=== PATIENT | female | born 1935 | race Caucasian/White ===

== ENCOUNTER 2016-10-13 11:50 | Inpatient (IN) | payer MEDICARE ==
[~2016-10-13] VITALS: Ht 165.1 cm; Wt 52.3 kg
[2016-10-13 12:34] VITALS: BP 189/68
[2016-10-13 13:19] LABS: BASO # 0.1 10*3/uL (0.0-0.1); BASO % 1.1 % (0.0-1.0); EOS # 0.1 10*3/uL (0.0-0.4); EOS % 1.1 % (1.0-4.0); HEMATOCRIT 30.9 % (37.0-47.0); HEMOGLOBIN 10.3 g/dl (12.0-16.0); LYMPH # 1.7 10*3/uL (1.3-4.4); LYMPH % 37.7 % (27.0-41.0); MEAN CELL VOLUME 94.2 fl (81.0-99.0); MEAN CORPUSCULAR HGB 31.4 pg (27.0-31.0); MEAN CORPUSCULAR HGB CONC 33.3 g/dl (33.0-37.0); MEAN PLATELET VOLUME 10.2 fl (9.6-12.3); MONO # 0.4 10*3/uL (0.1-1.0); MONO % 9.4 % (3.0-9.0); NEUT # 2.2 10*3/uL (2.3-7.9); NEUT % 50.5 % (47.0-73.0); PLATELET COUNT AUTOMATED 154 10*3/uL (130-400); RED BLOOD COUNT 3.28 10*6/uL (4.10-5.10); RED CELL DISTRI WIDTH 12.2 % (0-14.5); WHITE BLOOD COUNT 4.4 10*3/uL (4.8-10.8)
[2016-10-13 13:34] LABS: ALBUMIN 2.9 gm/dl (3.1-4.5); ALKALINE PHOSPHATASE 80 U/L (45-117); BILIRUBIN, TOTAL 0.5 mg/dl (0.2-1.0); BUN 16 mg/dl (7-24); CARBON DIOXIDE 29 mmol/L (21-32); CHLORIDE 103 mmol/L (98-107); EST GLOM FILT AFRICAN AMERICAN > 60 ml/min; GLUCOSE 108 mg/dL (65-99); POTASSIUM 4.5 mmol/L (3.5-5.1); SGOT/AST 7 IU/L (3-35); SGPT/ALT 12 U/L (12-78); SODIUM 140 mmol/L (136-145); TOTAL PROTEIN 7.3 gm/dL (6.4-8.2)
[2016-10-13 14:39] VITALS: BP 204/82
[2016-10-13 14:49] LABS: BILIRUBIN NEGATIVE (NEGATIVE); BLOOD 1+ (NEGATIVE); CLARITY SL CLOUDY (CLEAR); COLOR YELLOW (YELLOW); GLUCOSE NEGATIVE (NEGATIVE); KETONE NEGATIVE (NEGATIVE); LEUKO ESTERASE 2+ (NEGATIVE); NITRITE NEGATIVE (NEGATIVE); PROTEIN NEGATIVE (NEGATIVE)
[2016-10-13 15:04] LABS: BACTERIA 2+; MUCOUS TRACE; URINE REFLEX COMMENT YES (NO); WBC 21-30 wbc/hpf (0-5)
[2016-10-13 18:35] VITALS: BP 176/50
[2016-10-13 20:00] VITALS: BP 144/44
[2016-10-14] VITALS: BP 158/57
[2016-10-14 06:45] LABS: BASO % 0.7 % (0.0-1.0); EOS # 0.1 10*3/uL (0.0-0.4); EOS % 1.9 % (1.0-4.0); HEMATOCRIT 27.1 % (37.0-47.0); HEMOGLOBIN 8.9 g/dl (12.0-16.0); LYMPH # 2.3 10*3/uL (1.3-4.4); LYMPH % 40.4 % (27.0-41.0); MEAN CELL VOLUME 93.4 fl (81.0-99.0); MEAN CORPUSCULAR HGB 30.7 pg (27.0-31.0); MEAN CORPUSCULAR HGB CONC 32.8 g/dl (33.0-37.0); MEAN PLATELET VOLUME 10.6 fl (9.6-12.3); MONO # 0.5 10*3/uL (0.1-1.0); MONO % 9.5 % (3.0-9.0); NEUT # 2.7 10*3/uL (2.3-7.9); NEUT % 47.1 % (47.0-73.0); PLATELET COUNT AUTOMATED 147 10*3/uL (130-400); RED CELL DISTRI WIDTH 12.2 % (0-14.5); WHITE BLOOD COUNT 5.7 10*3/uL (4.8-10.8)
[2016-10-14 07:22] LABS: INTERNATIONAL NORM RATIO 1.1 (2.0-3.5); PROTHROMBIN TIME 11.5 SECONDS (9.0-12.4)
[2016-10-14 07:27] LABS: CHLORIDE 104 mmol/L (98-107); POTASSIUM 4.2 mmol/L (3.5-5.1); SODIUM 137 mmol/L (136-145)
[2016-10-14 07:40] LABS: ALBUMIN 2.6 gm/dl (3.1-4.5); ALKALINE PHOSPHATASE 73 U/L (45-117); BILIRUBIN, TOTAL 0.5 mg/dl (0.2-1.0); BUN 17 mg/dl (7-24); CARBON DIOXIDE 26 mmol/L (21-32); CHOLESTEROL 86 mg/dL (<200); EST GLOM FILT AFRICAN AMERICAN > 60 ml/min; GLUCOSE 95 mg/dL (65-99); HDL CHOLESTEROL 46 mg/dl (40-60); LDL CHOLESTEROL 32 mg/dL (9-159); MAGNESIUM 2.1 mg/dL (1.5-2.1); PHOSPHOROUS 3.1 mg/dL (2.5-4.9); SGOT/AST 8 IU/L (3-35); SGPT/ALT 7 U/L (12-78); TOTAL PROTEIN 6.5 gm/dL (6.4-8.2); TRIGLYCERIDES 38 mg/dl (<150); VLDL CHOLESTEROL 8 mg/dL (6-40)
[2016-10-14 08:00] VITALS: BP 160/50
[2016-10-14 12:00] VITALS: BP 149/69
[2016-10-14 16:00] VITALS: BP 147/86
[2016-10-14 20:00] VITALS: BP 177/55
[2016-10-15 01:30] VITALS: BP 173/55
[2016-10-15 06:13] LABS: BASO % 0.6 % (0.0-1.0); EOS # 0.1 10*3/uL (0.0-0.4); EOS % 2.6 % (1.0-4.0); HEMOGLOBIN 8.9 g/dl (12.0-16.0); LYMPH # 2.5 10*3/uL (1.3-4.4); MEAN CELL VOLUME 95.6 fl (81.0-99.0); MEAN CORPUSCULAR HGB 30.4 pg (27.0-31.0); MEAN CORPUSCULAR HGB CONC 31.8 g/dl (33.0-37.0); MEAN PLATELET VOLUME 10.1 fl (9.6-12.3); MONO # 0.5 10*3/uL (0.1-1.0); MONO % 10.2 % (3.0-9.0); NEUT # 1.9 10*3/uL (2.3-7.9); NEUT % 37.4 % (47.0-73.0); PLATELET COUNT AUTOMATED 135 10*3/uL (130-400); RED BLOOD COUNT 2.93 10*6/uL (4.10-5.10); RED CELL DISTRI WIDTH 12.2 % (0-14.5)
[2016-10-15 06:45] LABS: BUN 18 mg/dl (7-24); CARBON DIOXIDE 26 mmol/L (21-32); CHLORIDE 106 mmol/L (98-107); GLUCOSE 101 mg/dL (65-99); POTASSIUM 4.2 mmol/L (3.5-5.1); SODIUM 141 mmol/L (136-145)
[2016-10-15 06:46] LABS: EST GLOM FILT AFRICAN AMERICAN > 60 ml/min
[2016-10-15 08:00] VITALS: BP 170/50
[2016-10-15 12:00] VITALS: BP 151/48
[2016-10-15 16:00] VITALS: BP 122/58
[2016-10-15 20:00] VITALS: BP 104/51
[2016-10-16] VITALS: BP 141/48
[2016-10-16 08:00] VITALS: BP 159/41
[2016-10-16] MEDS ORDERED: LISINOPRIL5 MG PO (11:41)
[2016-10-16] MEDS ORDERED: LEVAQUIN750 M1 PO (11:41)
[2016-10-16 12:00] VITALS: BP 132/30
== END 2016-10-16 13:45 | disposition other institution (70) | DRG 177 ==
LOC: ED 11:50 → 5E 17:48 → EDHOLD 17:48 → 5E 10-16 13:45
PROVIDERS: Emergency Medicine; Internal Medicine
DX: J15.6 Pneumonia due to other Gram-negative bacteria (principal); E43 Unspecified severe protein-calorie malnutrition; S72.102A Unspecified trochanteric fracture of left femur, initial encounter for closed fracture; N39.0 Urinary tract infection, site not specified; D64.9 Anemia, unspecified; S79.912A Unspecified injury of left hip, initial encounter; Z68.1 Body mass index [BMI] 19.9 or less, adult; W18.39XA Other fall on same level, initial encounter; D72.819 Decreased white blood cell count, unspecified; I16.0 Hypertensive urgency; Z71.6 Tobacco abuse counseling; Z88.6 Allergy status to analgesic agent; Y93.89 Activity, other specified; Y92.89 Other specified places as the place of occurrence of the external cause; Y99.8 Other external cause status

== ENCOUNTER 2016-11-27 22:52 | Emergency (ER) | payer MEDICARE ==
[~2016-11-27] VITALS: Ht 165.1 cm; Wt 59.0 kg
[~2016-11-27 22:52] MED LIST: LEVAQUIN750 M1 PO; LISINOPRIL5 MG PO
[2016-11-27 23:16] LABS: BASO # 0.1 10*3/uL (0.0-0.1); BASO % 0.4 % (0.0-1.0); EOS # 0.1 10*3/uL (0.0-0.4); EOS % 0.4 % (1.0-4.0); HEMATOCRIT 28.8 % (37.0-47.0); HEMOGLOBIN 9.5 g/dl (12.0-16.0); IG # 0.1 10*3/uL (0.0-0.1); LYMPH # 2.9 10*3/uL (1.3-4.4); LYMPH % 20.7 % (27.0-41.0); MEAN CELL VOLUME 92.6 fl (81.0-99.0); MEAN CORPUSCULAR HGB 30.5 pg (27.0-31.0); MEAN PLATELET VOLUME 9.9 fl (9.6-12.3); NEUT % 70.9 % (47.0-73.0); PLATELET COUNT AUTOMATED 208 10*3/uL (130-400); RED BLOOD COUNT 3.11 10*6/uL (4.10-5.10); RED CELL DISTRI WIDTH 12.2 % (0-14.5); WHITE BLOOD COUNT 14.1 10*3/uL (4.8-10.8)
[2016-11-27 23:33] LABS: ALBUMIN 3.2 gm/dl (3.1-4.5); ALKALINE PHOSPHATASE 72 U/L (45-117); BILIRUBIN, TOTAL 0.4 mg/dl (0.2-1.0); BUN 31 mg/dl (7-24); CARBON DIOXIDE 23 mmol/L (21-32); CHLORIDE 95 mmol/L (98-107); EST GLOM FILT AFRICAN AMERICAN > 60 ml/min; GLUCOSE 133 mg/dL (65-99); POTASSIUM 4.2 mmol/L (3.5-5.1); SGOT/AST 14 IU/L (3-35); SODIUM 131 mmol/L (136-145); TOTAL PROTEIN 8.2 gm/dL (6.4-8.2)
[2016-11-27 23:38] LABS: SGPT/ALT 19 U/L (12-78)
== END 2016-11-28 01:03 | disposition home or self-care (01) ==
LOC: ED 22:52
PROVIDERS: Nurse Practitioner Family
DX: R11.0 Nausea (principal); I10 Essential (primary) hypertension; F17.210 Nicotine dependence, cigarettes, uncomplicated; Z88.0 Allergy status to penicillin; Z79.899 Other long term (current) drug therapy

== ENCOUNTER 2017-06-16 13:18 | Inpatient (IN) | payer MEDICARE ==
[~2017-06-16] VITALS: Ht 170.1 cm; Wt 47.3 kg
--- NOTE | ~2017-06-16 | WRIGHTHP ---
[place], [place] PATIENT HISTORY AND PHYSICAL EXAM NAME: RICK ARRINGTON [facility] #: [id number] UNIT #: [id number] ROOM: 420 DOCTOR: TREVOR MELRAA MD BIRTHDATE: [birth year] DOS: 06/16/2017 HISTORY OF PRESENT ILLNESS: The patient is an 81-year-old female. The patient with past medical history of: 1. Adult failure to thrive. 2. History of closed fracture of the lesser trochanter of the left femur. 3. History of nicotine smoke dependence 4. Mild protein-calorie malnutrition. 5. Hypertension. 6. Normocytic anemia. The patient presented to the Emergency Department after she had dental extractions, following which she was doing well until she took CODEINE for pain prescribed by her dentist and within one hour she became very confused, had nausea, vomiting and a syncopal episode. She was alert, but drowsy in the Emergency Department. After admission, her condition has improved. There are no complaints of any chest pain. No shortness of breath. No GI or urinary symptoms. REVIEW OF SYSTEMS: LUNGS: Without shortness of breath or wheezing. GASTROINTESTINAL: No nausea, vomiting, diarrhea or constipation anymore. Earlier she had vomiting. CARDIOVASCULAR: No chest pains or palpitations. SOCIAL HISTORY: Nicotine smoke dependent. Denies any alcohol or drug abuse. FAMILY HISTORY: Noncontributory. MEDICATIONS: The patient takes only lisinopril at home. ALLERGIES: Known allergies to ASPIRIN. PHYSICAL EXAMINATION: GENERAL: Alert, oriented x 3. HEENT AND NECK: Extraocular movements are intact. Sclerae are anicteric. Oral mucosa is moist and clean. No obvious facial weakness. Neck is supple without any lymphadenopathy. No thyromegaly. No JVD. No carotid arterial bruits. Slight swelling of the right side of the face where she had a recent dental procedure. LUNGS: Clear to auscultation. No wheezing. No rhonchi. CARDIOVASCULAR SYSTEM: Heart rate is regular in rate and rhythm. S1 and S2 normally audible. No significant murmur or any other abnormal cardiac sounds. ABDOMEN: Soft, nontender. No obvious organomegaly. Bowel sounds are present. No obvious herniation. EXTREMITIES: Without significant cyanosis or edema. Warm to touch. CENTRAL NERVOUS SYSTEM: Alert and oriented x 3. Cranial nerves II-XII are intact. Speech is normal. The patient is able to move all extremities. Normal muscle strength. Deep tendon reflexes are equal on both sides. Plantars were downgoing. [place], [place] PATIENT HISTORY AND PHYSICAL EXAM [id number] #: [id number] ROOM: [facility] DOCTOR: SARITHA CASTILLO,TREVOR Moise BIRTHDATE: [birth year] CENTRAL NERVOUS SYSTEM: Generalized weakness. LABORATORY DATA: Urine cultures are normal. Hemoglobin 9.7. No leukocytosis. Platelets low at 113 1000. Normal serum electrolytes. IMPRESSION AND PLAN: 1. Adverse reaction to CODEINE used after dental extraction for pain relief followed by mental confusion and vomiting, which have resolved. The patient is feeling much better. She is alert and oriented. I am putting in a discharge for the patient to be able to leave the hospital in the morning because she does not want to leave at this time and she lives by herself. 2. Benign essential hypertension, with controlled blood pressures. 3. Old age and adult failure to thrive. The patient is followed closely by her family at home. 4. Anemia of chronic disease. Hemoglobin stable at 9.7. TREVOR MELARA MD CM:HISPHYS:PATIENT HISTORY AND PHYSICAL EXAMINATION 55 54 TREVOR MELARA MD 06/17/[id number] interface
[2017-06-16 13:18] VITALS: BP 134/54
[2017-06-16 13:56] LABS: BASO % 0.3 % (0.0-1.0); EOS % 0.1 % (1.0-4.0); HEMOGLOBIN 10.7 g/dl (12.0-16.0); LYMPH # 1.7 10*3/uL (1.3-4.4); LYMPH % 14.6 % (27.0-41.0); MEAN CELL VOLUME 97.6 fl (81.0-99.0); MEAN CORPUSCULAR HGB 31.7 pg (27.0-31.0); MEAN CORPUSCULAR HGB CONC 32.4 g/dl (33.0-37.0); MONO # 0.9 10*3/uL (0.1-1.0); MONO % 7.3 % (3.0-9.0); NEUT % 76.8 % (47.0-73.0); PLATELET COUNT AUTOMATED 133 10*3/uL (130-400); RED BLOOD COUNT 3.38 10*6/uL (4.10-5.10); RED CELL DISTRI WIDTH 12.1 % (0-14.5); WHITE BLOOD COUNT 11.7 10*3/uL (4.8-10.8)
[2017-06-16 14:08] LABS: ALBUMIN 3.1 gm/dl (3.1-4.5); ALKALINE PHOSPHATASE 85 U/L (45-117); BUN 23 mg/dl (7-24); CHLORIDE 99 mmol/L (98-107); CREATININE 0.89 mg/dL (0.55-1.02); LIPASE 72 U/L (73-393); POTASSIUM 3.9 mmol/L (3.5-5.1); SGOT/AST 10 IU/L (3-35); SGPT/ALT 16 U/L (12-78); SODIUM 134 mmol/L (136-145)
[2017-06-16 14:09] LABS: TROPONIN I 0.017 ng/ml (<0.045)
[2017-06-16 15:13] LABS: BILIRUBIN 1+ (NEGATIVE); BLOOD 2+ (NEGATIVE); CLARITY SL CLOUDY (CLEAR); COLOR YELLOW (YELLOW); GLUCOSE NEGATIVE (NEGATIVE); KETONE TRACE (NEGATIVE); LEUKO ESTERASE NEGATIVE (NEGATIVE); NITRITE NEGATIVE (NEGATIVE); SPECIFIC GRAVITY >= 1.030 (1.005-1.030)
[2017-06-16 15:21] LABS: BACTERIA 1+
[2017-06-16 15:22] LABS: RBC 21-30 rbc/hpf (0-2)
--- NOTE | 2017-06-16 16:41 | NUR ---
PT WAS SET FOR DISCHARGE, PT IS STILL DROWSY, PT HAD NAUSEA WHEN ATTEMPT TO MOVE HER UP FROM THE BED. PT IS WEAK AND LETHARGIC. PT STATES " I CAN'T GO HOME I WANT TO STAY". THIS WAS DISCUSS WITH DR HORVATH, PT IS TO BE ADMITTED. DAUGHTER IS AGREEABLE.
[2017-06-16 16:46] VITALS: BP 126/66
[2017-06-16 18:35] VITALS: BP 172/48
--- NOTE | 2017-06-16 18:35 | NUR ---
A 81, admitted to , under the services of Dr. SARITHA CASTILLO,TREVOR Moise with a diagnosis of AC ENCEPHALOPATHY, SYNCHOPE. Chief complaint is SYNCHOPE, NAUSEA/VOMITING. Patient arrived via stretcher from ER. Monitor applied. Initial assessment completed. Vital signs taken and recorded. DR. SARITHA CASTILLO,TREVOR Moise notified of admission to the unit. Orders received. See assessment for past medical history, medications and allergies. Patient and/or family oriented to unit. [facility] visitation policy reviewed. Clothing/patient valuable form completed. MARTINEZ CALLES
[2017-06-16 18:46] VITALS: BP 172/48
[2017-06-16 20:00] VITALS: BP 168/53
--- NOTE | 2017-06-16 20:07 | NUR ---
IN TO ASSESS PATIENT, PATIENT IS NEAURO CHECKS EVERY HOUR. STATES SHE IS TIRED. PATIENT DROWSY. ABLE TO MOVE ALL EXTREMITIES, BUT APPEARS WEAK. ABLE TO FOLLOW WITH EYES, ALERT AND ORIENTED TO PERSON AND PLACE, BUT DISORIENTED TO TIME. PATIENT AWAKENS WHEN SPOKEN WITH.
[2017-06-16 22:00] VITALS: BP 148/52
[2017-06-17] VITALS: BP 148/52
[2017-06-17 06:25] LABS: BUN 22 mg/dl (7-24); CHLORIDE 106 mmol/L (98-107); CREATININE 0.66 mg/dL (0.55-1.02); SODIUM 138 mmol/L (136-145)
[2017-06-17 06:34] LABS: BASO % 0.4 % (0.0-1.0); EOS % 0.2 % (1.0-4.0); HEMATOCRIT 30.2 % (37.0-47.0); HEMOGLOBIN 9.7 g/dl (12.0-16.0); LYMPH # 2.7 10*3/uL (1.3-4.4); LYMPH % 29.1 % (27.0-41.0); MEAN CELL VOLUME 99.3 fl (81.0-99.0); MEAN CORPUSCULAR HGB 31.9 pg (27.0-31.0); MEAN CORPUSCULAR HGB CONC 32.1 g/dl (33.0-37.0); MEAN PLATELET VOLUME 12.5 fl (9.6-12.3); MONO # 0.8 10*3/uL (0.1-1.0); MONO % 8.3 % (3.0-9.0); NEUT # 5.6 10*3/uL (2.3-7.9); NEUT % 61.6 % (47.0-73.0); PLATELET COUNT AUTOMATED 113 10*3/uL (130-400); RED BLOOD COUNT 3.04 10*6/uL (4.10-5.10); RED CELL DISTRI WIDTH 12.2 % (0-14.5); WHITE BLOOD COUNT 9.1 10*3/uL (4.8-10.8)
[2017-06-17 08:00] VITALS: BP 154/50
--- NOTE | 2017-06-17 08:00 | NUR ---
SW WILL TALK TO PT AND FAMILY ABOUT DC PLAN.
--- NOTE | 2017-06-17 11:10 | NUR ---
SW BRIEFLY SPOKE WITH PT REGARDING DISCHARGE PLANS. PT WANTS SW TO SPEAK WITH DTQue ZAVALA. SW LEFT VM FOR DTQue ZAVALA TO CALL SW TO DISCUSS DISCHARGE PLANS. RETURN NUMBER GIVEN.
[2017-06-17 12:00] VITALS: BP 152/54
--- NOTE | 2017-06-17 12:14 | NUR ---
BRENDA SPOKE WITH DTR LUCAS. PT HAD 5 TEETH PULLED ON WEDNESDAY AT 2PM. PT TOOK MEDICATION FOR TEETH PAIN AND HAD A REACTION TO IT. PT HAS HOME HEALTH AIDE DAILY WITH [facility]. LUCAS'S [id number] IS [address], [place]. PHONE: .
[2017-06-17 16:00] VITALS: BP 156/60
[2017-06-17 20:00] VITALS: BP 137/80
--- NOTE | 2017-06-17 20:00 | NUR ---
RESTING IN BED. SKIN PALE, WARM & DRY. SWELLING NOTED TO RIGHT SIDE OF FACE. PT. DENIES PAIN/DISCOMFORT. IV FLUIDS INFUSING INTO RIGHT ANTECUBITAL WITHOUT DIFFICULTY; SITE ASYMPTOMATIC. ORIENTED TO PLACE BUT NOT TO TIME. NO DISTRESS NOTED. CALL LIGHT WITHIN REACH.
[2017-06-18] VITALS: BP 161/50
--- NOTE | 2017-06-18 04:00 | NUR ---
RESTING IN BED WITH EYES CLOSED. CALL LIGHT WITHIN REACH. BED IN LOW POSITION.
[2017-06-18 08:00] VITALS: BP 160/50
--- NOTE | 2017-06-18 11:19 | NUR ---
Discharge instructions reviewed with patient/family. Patient receptive and verbalizes understanding. Follow-up care arranged. Written instructions given to patient/family. ROBBY BECKER
== END 2017-06-18 11:19 | disposition home health service (06) | DRG 71 ==
LOC: ED 13:18 → EDHOLD 17:29 → 4E 17:29
PROVIDERS: Internal Medicine; ADMIT Internal Medicine
DX: G93.40 Encephalopathy, unspecified (principal); E44.0 Moderate protein-calorie malnutrition; D63.8 Anemia in other chronic diseases classified elsewhere; R54 Age-related physical debility; I10 Essential (primary) hypertension; T40.2X5A Adverse effect of other opioids, initial encounter; F17.200 Nicotine dependence, unspecified, uncomplicated; R62.7 Adult failure to thrive; Z79.899 Other long term (current) drug therapy; Y92.89 Other specified places as the place of occurrence of the external cause; Z88.6 Allergy status to analgesic agent; Z87.440 Personal history of urinary (tract) infections

== ENCOUNTER 2019-06-20 17:15 | Inpatient (IN) | payer MEDICARE ==
[~2019-06-20] VITALS: Ht 165.1 cm; Wt 48.7 kg
[2019-06-20 17:15] VITALS: BP 157/59
[~2019-06-20 17:15] MED LIST changes: +CEFUROXIME AXE250 MG PO; +PREDNISONE5 MG PO
[2019-06-20 17:37] LABS: BILIRUBIN NEGATIVE (NEGATIVE); BLOOD TRACE-INTACT (NEGATIVE); CLARITY CLOUDY (CLEAR); COLOR YELLOW (YELLOW); GLUCOSE NEGATIVE (NEGATIVE); KETONE NEGATIVE (NEGATIVE); LEUKO ESTERASE 1+ (NEGATIVE); NITRITE POSITIVE (NEGATIVE)
[2019-06-20 17:46] LABS: BACTERIA 4+; EPITHELIAL CELLS 0-2; MUCOUS TRACE; RBC 0-2 rbc/hpf (0-2); WBC 41-50 wbc/hpf (0-5)
[2019-06-20 18:26] LABS: BASO % 0.3 % (0.0-1.0); HEMATOCRIT 36.9 % (37.0-47.0); HEMOGLOBIN 11.6 g/dl (12.0-16.0); LYMPH # 0.9 10*3/uL (1.3-4.4); LYMPH % 10.8 % (27.0-41.0); MEAN CELL VOLUME 100.8 fl (81.0-99.0); MEAN CORPUSCULAR HGB 31.7 pg (27.0-31.0); MEAN CORPUSCULAR HGB CONC 31.4 g/dl (33.0-37.0); MEAN PLATELET VOLUME 12.9 fl (9.6-12.3); MONO # 0.3 10*3/uL (0.1-1.0); MONO % 3.8 % (3.0-9.0); NEUT # 6.7 10*3/uL (2.3-7.9); NEUT % 84.7 % (47.0-73.0); PLATELET COUNT AUTOMATED 81 10*3/uL (130-400); RED BLOOD COUNT 3.66 10*6/uL (4.10-5.10); RED CELL DISTRI WIDTH 12.5 % (0-14.5); WHITE BLOOD COUNT 7.9 10*3/uL (4.8-10.8)
[2019-06-20 18:42] VITALS: BP 161/47
[2019-06-20 18:43] LABS: ACT PARTIAL THROMBO TIME 23.1 SECONDS (20.0-32.1)
[2019-06-20 18:51] LABS: ALBUMIN 3.3 gm/dl (3.1-4.5); CREATININE 1.06 mg/dL (0.55-1.02); POTASSIUM 4.5 mmol/L (3.5-5.1); TOTAL PROTEIN 7.7 gm/dL (6.4-8.2); TROPONIN I 0.016 ng/ml (<0.045)
[2019-06-20 20:04] VITALS: BP 127/73
--- NOTE | 2019-06-20 20:04 | NUR ---
A 83, admitted to , under the services of CARLOS Ramirez MD with a diagnosis of FALLS, WEAKNESS. Chief complaint is WEAKNESS. Patient arrived via stretcher from ER. Monitor applied. Initial assessment completed. Vital signs taken and recorded. CARLOS RAMIREZ MD notified of admission to the unit. Orders received. See assessment for past medical history, medications and allergies. Patient and/or family oriented to unit. [facility] visitation policy reviewed. Clothing/patient valuable form completed. NEDRA KEYES
--- NOTE | 2019-06-20 21:30 | NUR ---
CALL PLACED TO DR. TORRES ADMISSION ORDERS RECEIVED, WILL SEE PATIENT TOMORROW AM.
[2019-06-21] VITALS: BP 146/42
--- NOTE | 2019-06-21 05:33 | NUR ---
PATIENT RESTED QUIETLY ALL NIGHT, UPON AWAKING THIS MORNING SHE WAS COMPLAINING TO THE PA THAT HER ARMS HURT, WHEN I ASKED HER ABOUT PAIN SHE STATED SHE WASNT HAVING ANY.
--- NOTE | 2019-06-21 08:03 | NUR ---
PHYSICAL THERAPY Screen received as well as Physical Therapy orders will follow thank you Perlita Stewart PT
--- NOTE | 2019-06-21 09:00 | NUR ---
Chrome Tanner in to talk to patient. Patient states lives at home alone with her family checking in on her. There are 0 steps in the home. Physician: Dr. Mike Taylor Pharmacy: she in unsure, her son picks up her medication Home health services: [facility] Patient's level of ADLs: MINIMAL ASSIST Patient has working utilities: yes DME: walker Follow-up physician's appointment after d/c: she prefers to make her own follow up appt after discharge Does patient want to access PORTAL?: no Discharge plan discussed with patient. She lives at home alone with her family checking in on her. She states she has 2 daughters, Franchesca and Verna, and one son. She needs minimal assistance with her ADLs and ambulates with a walker. Discussed short term rehab and she refuses. Discussed home health care services and she is agreeable. She states she has Yumi from [facility] but is unsure of how often she comes. When provided with a list of agencies she chose [facility]. When medically stable she will be discharged to home. Her son will provide transportation on discharge. LAURA SOLER
[2019-06-21 09:14] VITALS: BP 120/60
--- NOTE | 2019-06-21 09:29 | NUR ---
Spoke to daughter, Verna, at [phone], regarding discharge planning. She states her mother does live at home alone. She has a life alert that she keeps on her walker but when she fell she couldn't reach her walker. Patient does have [facility] but she is unsure of amount of time. [facility] provides aides to help her bathe and meal preparation. Daughter doesn't know which pharmacy her mom uses as her brother picks up her medications and works in [employer]. Discussed short term rehab and she refuses stating her mom has gone before and wasn't happy with it. Discussed home health care services and daughter is agreeable as mother has had home health care services in the past. Discussed therapy can come to the home to see the patient but it would be possibly 20-40 minutes at a time a couple days a week. Daughter states that will be fine. personal financial planner notified.
--- NOTE | 2019-06-21 10:25 | NUR ---
ARRIVED ON SHIFT, INTRODUCED TO PATIENT, NO NEEDS VOICED AT THIS TIME, WHITE BOARD UPDATED.
--- NOTE | 2019-06-21 11:40 | NUR ---
PT REFUSED MRI. DR TORRES MADE AWARE.
--- NOTE | 2019-06-21 11:49 | NUR ---
Nursing screen received and chart reviewed. Patient was found at home following a fall, lives alone. If patient has a decline in ADLs and functional mobility/transfers, please send OT referral. Thank you. Imelda Riojas, OTR/L
--- NOTE | 2019-06-21 11:56 | NUR ---
Per Paula at [facility] patient has aides 2 hours in the AM and 2 hours in the PM 7 days a week.
[2019-06-21 13:14] VITALS: BP 126/58
--- NOTE | 2019-06-21 13:51 | NUR ---
Occupational therapy orders received and chart reviewed. Patient was in bed with HOB elevated eating her lunch upon arrival. Patient refusing OT evaluation at this time. Will follow up with patient. Thank you. Imelda Riojas, OTR/L
--- NOTE | 2019-06-21 14:20 | NUR ---
Occupational therapy orders received and evaluation completed in full on floor four. Patient precautions include fall risk, standard walker use, bed alarm, JACKSON, L foot pain, and generalized weakness. Per OT eval, patient would benefit from a SNF. If refused, home with HH SN, OT, and PT with 24/ supervision. Patient would benefit from continued OT to maximize safety and independence with ADLs and functional mobility/transfers. Patient complexity is mod, 30025. Thank you for the referral. Imelda Riojas, OTR/L
--- NOTE | 2019-06-21 15:26 | NUR ---
PHYSICAL THERAPY Jh completed moderate level of complexity 03527 recomend SNF at discharge PT to work on transfer,amb, strengthening, balance and safety, thank you Perlita Stewart PT
[2019-06-21 16:59] VITALS: BP 141/40
--- NOTE | 2019-06-21 19:30 | NUR ---
ARRIVED ON SHIFT, INTRODUCED TO PATIENT, NO NEEEDS VOICED AT THIS TIME, WHITE BOARD UPDATED.
[2019-06-21 20:00] VITALS: BP 153/39
[2019-06-21 20:30] VITALS: BP 100/60
--- NOTE | 2019-06-21 21:00 | NUR ---
24 HR chart check completed.
[2019-06-22] VITALS: BP 157/61
[2019-06-22 08:00] VITALS: BP 142/57
--- NOTE | 2019-06-22 08:13 | NUR ---
Collection Administrator in to see patient with Dr. Garza. Patient left foot x-ray showing minimally displaced fractures of the distal shafts of third and fourth metatarsals. Subtle nonspecific changes of the distal fifth metatarsal are noted. New orders for podiatry. Discussed short term SNF with patient and she is agreeable. When provided a list of facilities she chose [facility] as she has been there in the past. Left message for daughter, Verna, at [phone] regarding SNF. Awaiting return call. logistics planner notified.
--- NOTE | 2019-06-22 08:18 | NUR ---
Patient agreeable to short term skilled, requesting [facility]. Contacted facility and faxed referral, notified facility patient is discharging today. Waiting on review.
[2019-06-22] MEDS ORDERED: PREDNISONE5 MG PO (08:21)
[2019-06-22] MEDS ORDERED: LISINOPRIL5 MG PO (08:21)
[2019-06-22] MEDS ORDERED: CIPRO500 MG PO (08:22)
--- NOTE | 2019-06-22 08:25 | NUR ---
CONSULT TO PODIATRY CALLED.
--- NOTE | 2019-06-22 09:10 | NUR ---
OT NOTE Pt was seen this A.M. 1:1 for 15 minute OT session. Upon arrival pt was supine in bed. Pt identified by name and and had complaints of L foot pain which she did not rate on 0-10 pain scale. Pt transferred supine to sit EOB with Yimi for assist with UB. While sitting EOB pt donned B socks with Yimi. Pt completed multiple sit to stand transfers from bed level with Yimi and use of standard walker. Challenged pt's static standing tolerance needed for increased I in self care tasks and functional trasnfers, pt was able to tolerate aprox 40-60 seconds at a time before sitting due to fatigue and pain in L foot. Challenged pt's dynamic standing balance needed for increased I and enhanced safety. While weight shifting, crossing midline, and reaching over all planes pt was able to maintain F- standing balance throughout. Pt then transferred back into bed sit to supine with Yimi. There she was left with call light in hand, tray table in place, and bed alarm activated for safety. Continue with rec D/C plan to SNF. SHONDA Ballard/Radha
--- NOTE | 2019-06-22 09:38 | NUR ---
PHYSICAL THERAPY Patient presented to therapy in supine with head of bed elevated and bed alarm activated. Patient was identified by name and on wristband. Patient gives informed consent for treatment. Patient has complaint of pain in the L FOOT. Patient performed supine to sitting on EOB with SBA. Patient sat on EOB without assistance. Patient sit to stand from EOB with MIN A X 1 with verbal cues for pushing off the bed with hands. Patient stood at Walker x 2 with CGA X 2 to SBA for [address] 1 [address] attempt and 1 minute 15 seconds the 2nd attempt. Patient had increased L FOOT PAIN while standing and this prevented her from ambulating. Patient said her LEs were weak and felt like they wanted to buckle. Patient was verbal cued to tighten thigh muscles and lock knees into extension in order to prevent knees buckling. Patient transferred back to supine in bed with SBA. Patient was left in supine with head of bed elevated, call light within reach and bed alarm activated. Patient was 1:1 with this ENVIRONMENTAL CONSULTANT for 20 minutes total. ROSINA MACARIO ENVIRONMENTAL CONSULTANT
--- NOTE | 2019-06-22 11:12 | NUR ---
Spoke to Dr. Garza regarding continuing or discontinuing case monitor. New orders received to discontinue case monitor.
--- NOTE | 2019-06-22 11:50 | NUR ---
Dr. Garza notified of patient's auth approval for discharge to [facility]. Auth # [id number] per [facility] at [facility]. Nurse and nurse discharge planner notified.
[2019-06-22 12:00] VITALS: BP 146/52
--- NOTE | 2019-06-22 12:20 | NUR ---
Patient is discharged to [facility], transportation scheduled with [facility] at 3:30 PM. Nursing/steward/stewardess dining room notified. Left message for igor Gillespie
--- NOTE | 2019-06-22 12:25 | NUR ---
Spoke to daughter, Verna, regarding discharging to [facility] today at 3pm. She is in disbelief that patient agreed to go. Explained she agreed to CM and Dr. Garza this morning stating she would do what Dr. Garza thought she needed to do. Explained she does have 2 broken toes on the left foot. The above information was going to be passed on by her to her brother, Jeison. neighborhood planner following.
--- NOTE | 2019-06-22 14:48 | NUR ---
REPORT CALLED TO [facility]. PT INFORMED SHELL BE GOING SOON. NO OTHER COMPLAINTS/CONCERNS AT THIS TIME.
--- NOTE | 2019-06-22 15:05 | NUR ---
Discharge instructions reviewed with patient/family. Patient receptive and verbalizes understanding. Follow-up care arranged. Written instructions given to patient/family. YUE MONTES
--- NOTE | 2019-06-23 07:56 | NUR ---
OCCUPATIONAL THERAPY CO-SIGN I approve of the Occupational Therapy notes written above. BEVERLY LEMON OTR/Radha
--- NOTE | 2019-06-26 07:43 | NUR ---
PHYSICAL THERAPY CO-SIGN I approve of the Physical Therapy notes written above. Perlita Stewart PT
== END 2019-06-22 15:00 | disposition other institution (70) | DRG 562 ==
LOC: ED 17:15 → EDHOLD 18:53 → 4E 18:53
PROVIDERS: Emergency Medicine; ADMIT Internal Medicine
DX: S92.332A Displaced fracture of third metatarsal bone, left foot, initial encounter for closed fracture (principal); G93.41 Metabolic encephalopathy; N39.0 Urinary tract infection, site not specified; Z68.1 Body mass index [BMI] 19.9 or less, adult; S92.342A Displaced fracture of fourth metatarsal bone, left foot, initial encounter for closed fracture; R62.7 Adult failure to thrive; B96.20 Unspecified Escherichia coli [E. coli] as the cause of diseases classified elsewhere; M35.3 Polymyalgia rheumatica; I10 Essential (primary) hypertension; S00.03XA Contusion of scalp, initial encounter; W07.XXXA Fall from chair, initial encounter; Y93.89 Activity, other specified; Y99.8 Other external cause status; Y92.090 Kitchen in other non-institutional residence as the place of occurrence of the external cause; Z88.6 Allergy status to analgesic agent; Z88.5 Allergy status to narcotic agent; Z87.01 Personal history of pneumonia (recurrent); Z87.440 Personal history of urinary (tract) infections

== ENCOUNTER 2020-02-27 05:36 | Inpatient (IN) | payer MEDICARE ==
[~2020-02-27] VITALS: Ht 157.4 cm; Wt 54.6 kg
[2020-02-27] VITALS (7 sets, daily range): BP systolic 115–163; BP diastolic 43–62
[~2020-02-27 05:36] MED LIST changes: +CIPRO500 MG PO
--- NOTE | 2020-02-27 05:51 | NUR ---
PATIENT INCONTINANT AT THIS TIME, CLEANSED AND CHANGED DEPEND. PHOTO TAKEN OF BUTTOCK AREA AFTER A RASH WAS NOTED. PT TOLERATED WELL. NO S/S OF DISTRESS NOTED. BED IN LOW, CALL LIGHT WITHIN REACH, BED RAIL UP X2.
--- NOTE | 2020-02-27 06:02 | NUR ---
AT BEDSIDE TO EVALUATE PATIENT.
--- NOTE | 2020-02-27 06:25 | NUR ---
LAB AT BEDSIDE.
[2020-02-27 06:37] LABS: BASO % 0.4 % (0.0-1.0); EOS % 0.3 % (1.0-4.0); HEMATOCRIT 32.7 % (37.0-47.0); LYMPH # 2.1 10*3/uL (1.3-4.4); LYMPH % 29.4 % (27.0-41.0); MEAN CELL VOLUME 91.9 fl (81.0-99.0); MEAN CORPUSCULAR HGB 29.2 pg (27.0-31.0); MEAN CORPUSCULAR HGB CONC 31.8 g/dl (33.0-37.0); MONO # 0.7 10*3/uL (0.1-1.0); MONO % 10.2 % (3.0-9.0); NEUT # 4.3 10*3/uL (2.3-7.9); NEUT % 59.2 % (47.0-73.0); PLATELET COUNT AUTOMATED 123 10*3/uL (130-400); RED BLOOD COUNT 3.56 10*6/uL (4.10-5.10); RED CELL DISTRI WIDTH 12.5 % (0-14.5); WHITE BLOOD COUNT 7.3 10*3/uL (4.8-10.8)
[2020-02-27 06:53] LABS: ALBUMIN 2.9 gm/dl (3.1-4.5); CREATININE 1.23 mg/dL (0.55-1.02); POTASSIUM 4.4 mmol/L (3.5-5.1); TOTAL PROTEIN 7.4 gm/dL (6.4-8.2)
[2020-02-27 06:54] LABS: TROPONIN I 0.018 ng/ml (<0.045)
--- NOTE | 2020-02-27 08:10 | NUR ---
ASSISTED PT TO BEDPAN WITHOUT DIFFICULTY, URINE SAMPLE OBTAINED. PT TOLERATED.
[2020-02-27 08:48] LABS: BACTERIA 3+; BILIRUBIN NEGATIVE (NEGATIVE); BLOOD NEGATIVE (NEGATIVE); CLARITY SL CLOUDY (CLEAR); COLOR YELLOW (YELLOW); GLUCOSE NEGATIVE (NEGATIVE); KETONE NEGATIVE (NEGATIVE); LEUKO ESTERASE NEGATIVE (NEGATIVE); NITRITE NEGATIVE (NEGATIVE); UROBILINOGEN 0.2 E.U./dl (0.2-1.0); WBC 0-2 wbc/hpf (0-5)
--- NOTE | 2020-02-27 10:20 | NUR ---
[place] 84, admitted to , under the services of Dr. SARITHA CASTILLO,TREVOR Moise with a diagnosis of CHF, AFIB. Chief complaint is DENIES AT PRESENT. Patient arrived via bed from ER. Monitor applied. Initial assessment completed. Vital signs taken and recorded. DR. SARITHA CASTILLO,TREVOR Moise notified of admission to the unit. Orders received. See assessment for past medical history, medications and allergies. Patient and/or family oriented to unit. [facility] visitation policy reviewed. Clothing/patient valuable form completed. TOBI MCINTOSH
--- NOTE | 2020-02-27 11:26 | NUR ---
DR. BANSAL'S ANSWERING SERVICE NOTIFIED OF CONSULT.
--- NOTE | 2020-02-27 12:41 | NUR ---
PHYSICAL THERAPY PT orders received, pt admitted this morning for new onset of AFib, CHF exacerbation for cardiology consult. Will follow. Thank you. Iain Montoya SPT Perlita Stewart PT
--- NOTE | 2020-02-27 21:30 | NUR ---
PATIENT ALERTX2. UNSURE OF MONTH,SEASON. PATIENT VOICES NO COMPLAINTS, NO SIGNS OF DISTRESS. RESPIRATIONS EASY, NON LABORED. BED IN LOWEST POSITION,CALL LIGHT WITIIN REACH. BED ALARM ON.
[2020-02-28] VITALS: BP 141/52
--- NOTE | 2020-02-28 09:00 | NUR ---
CM in to see patient. She is a LTC resident at [facility]. material planner following for return.
--- NOTE | 2020-02-28 11:20 | NUR ---
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 Patient is ok to return when medically stable, requires covid testing.
[2020-02-28 12:00] VITALS: BP 149/46
--- NOTE | 2020-02-28 12:07 | NUR ---
PHYSICAL THERAPY Physical Therapy evaluation completed on 4th floor with full evaluation to follow. Recommend physical therapy per plan of care and return to nursing facility with follow up with PT upon discharge. Thank you for this referral. Iain Montoya SPT Perlita Stewart PT
[2020-02-28 16:51] VITALS: BP 132/62
[2020-02-28 20:00] VITALS: BP 174/54
--- NOTE | 2020-02-28 21:00 | NUR ---
PATIENT ALERT TO SELF. VOICES NO COMPLAINTS. RESPIRATIONS EASY, NON LABORED. NO SIGNS OF DISTRESS. BED IN LOWEST POSITION,CALL LIGHT WITHIN REACH.BED ALARM ON. WILL CONTINUE TO MONITOR.
[2020-02-29] VITALS: BP 150/64; BP 169/68
--- NOTE | 2020-02-29 04:20 | NUR ---
Upon discharge recommend patient to follow up for wound care in outpatient setting continue current wound care orders at discharging facility.
--- NOTE | 2020-02-29 04:32 | NUR ---
PATIENT SLEEPING, HR DROPPED TO 27. STAT EKG ORDERED.
--- NOTE | 2020-02-29 05:13 | NUR ---
NOTIFIED DR. GUERIN OF RHYTHM CHANGE. NO NEW ORDERS RECEIVED. PATIENT HR NOW IN THE 60S. WILL CONTINUE TO MONITOR.
[2020-02-29 08:00] VITALS: BP 154/90
--- NOTE | 2020-02-29 08:00 | NUR ---
PT AWAKE AND ALERT SITTING UP IN CHAIR. NO STATED COMPLAINTS AT THIS TIME. DENIES PAIN. RESPIRATIONS ARE EASY AND REGULAR ON ROOM AIR. NO SOB NOTED AT REST. CHAIR IN LOCKED POSITION, CALL LIGHT WITHIN REACH. PT IS ABLE TO REPOSITION SELF IN CHAIR AND IS ENCOURAGED TO DO SO. WILL CONTINUE TO MONITOR.
[2020-02-29] MEDS ORDERED: ELIQUIS5 M1 PO (09:53)
--- NOTE | 2020-02-29 10:40 | NUR ---
Patient is discharged to return to [facility] via [place] at 2PM. NH, nursing, animal warden and daughter Verna all notified. DC orders and summary faxed.
--- NOTE | 2020-02-29 10:40 | NUR ---
PHYSICAL THERAPY Patient seen this am 1;1 for therapy visit and was sitting up in bedside recliner chair upon therapist arrival. Patient identified by name / and was very pleasant this morning, voicing no new c/o's. Patient tranfers sit to stand, CGA, and requested use of std walker, versus wh walker. Patient ambulated 50'x 1, std walker, CGA, demonstrating slow, step to coby. Patient needed v/c to improve walker safety / navigation and returned to bedside chair with mild fatigue. Following brief seated rest, patient completed seated B LE therex, all planes, x 15 reps each to increase LE strength. Patient remained in chair with call light, tray table, telephone and body alarm for safety. Will continue per POC as tolerated, total treatment time 23 minutes. Gilberto Larkin, COMMUNICATIONS CONSULTANT
[2020-02-29 12:00] VITALS: BP 144/70
--- NOTE | 2020-02-29 13:50 | NUR ---
REPORT CALLED TO [facility].
--- NOTE | 2020-02-29 14:00 | NUR ---
PT STATES SHE DOES NOT WANT A DISCHARGE PHOTO TAKEN OF HER WOUND.
--- NOTE | 2020-02-29 14:12 | NUR ---
Discharge instructions reviewed with patient/family. Patient receptive and verbalizes understanding. Follow-up care arranged. Written instructions given to patient/family. CHRISTIAN LOGAN
--- NOTE | 2020-03-01 08:04 | NUR ---
PHYSICAL THERAPY CO-SIGN I approve of the Physical Therapy notes written above. Perlita Stewart PT
== END 2020-02-29 14:12 | DRG 308 ==
LOC: ED 05:36 → EDHOLD 09:17 → 4E 09:17
PROVIDERS: Emergency Medicine; ADMIT Internal Medicine
DX: I48.0 Paroxysmal atrial fibrillation (principal); I50.23 Acute on chronic systolic (congestive) heart failure; E44.1 Mild protein-calorie malnutrition; I11.0 Hypertensive heart disease with heart failure; R62.7 Adult failure to thrive; R26.2 Difficulty in walking, not elsewhere classified; Z20.828 Contact with and (suspected) exposure to other viral communicable diseases; Z88.5 Allergy status to narcotic agent; Z88.6 Allergy status to analgesic agent; Z68.21 Body mass index [BMI] 21.0-21.9, adult; Z87.891 Personal history of nicotine dependence

== ENCOUNTER 2020-07-31 05:16 | Emergency (ER) | payer MEDICARE ==
[~2020-07-31] VITALS: Ht 165.1 cm; Wt 53.1 kg
[~2020-07-31 05:16] MED LIST changes: +ELIQUIS5 M1 PO
== END 2020-07-31 06:40 ==
LOC: ED 05:16
DX: Z04.89 Encounter for examination and observation for other specified reasons (principal); W18.39XA Other fall on same level, initial encounter; Y93.89 Activity, other specified; Y92.89 Other specified places as the place of occurrence of the external cause; Y99.8 Other external cause status